=== PATIENT | male | born 1975 | race Caucasian/White ===

== ENCOUNTER 2019-01-14 10:34 | Emergency (ER) | payer SELFPAY ==
[~2019-01-14] VITALS: Ht 172.7 cm; Wt 96.6 kg
[2019-01-14 10:39] VITALS: BP 136/77; PULSE 110; RESP 18; Ht 172.7 cm; Wt 96.6 kg
[2019-01-14] MEDS ORDERED: CIPR500T4 PO (11:52)
[2019-01-14] MEDS ORDERED: IBUPROFEN 800 MG TAB PO ONE (12:00)
--- NOTE | 2019-01-14 13:07 | ERD ---
ER Documentation Chief Complaint Chief Complaint uanble to urinate since morning HPI 43-year-old male presenting with dysuria. Patient states he has urinary retention. Has no back pain. No fevers. Denies flank pain. Denies fever. Has some hematuria. Denies medical problems. NKDA. Surgical history denies. Social history denies ROS All systems reviewed and are negative except as per history of present illness. Medications Home Meds Active Scripts Ciprofloxacin Hcl* (Ciprofloxacin Hcl*) 500 Mg Tablet, 500 MG PO BID for 7 Days, TAB Prov:DOMINIQUE CAMPBELL PA-C 01/14/19 PMhx/Soc History of Surgery: No Anesthesia Reaction: No Hx Neurological Disorder: No Hx Respiratory Disorders: No Hx Cardiac Disorders: No Hx Psychiatric Problems: No Hx Miscellaneous Medical Probl: No Hx Alcohol Use: No Hx Substance Use: No Hx Tobacco Use: No Smoking Status: Never smoker FmHx Family History: No diabetes, No coronary disease, No other Physical Exam Vitals Vital Signs Date Temp Pulse Resp B/P (MAP) Pulse Ox O2 O2 Flow FiO2 Time Delivery Rate 01/14/19 98.3 110 18 136/77 98 10:39 (96) Physical Exam GENERAL: The patient is well-appearing, well-nourished, in no acute distress HEENT: Atraumatic. Conjunctivae are pink. Pupils equal, round, and reactive to light. There is no scleral icterus. Tympanic membranes clear bilaterally. Oropharynx clear. NECK: C-spine is soft and supple. There is no meningismus. There is no cervical lymphadenopathy. CHEST: Clear to auscultation bilaterally. There are no rales, wheezes or rhonchi. HEART: Regular rate and rhythm. No murmurs, clicks, rubs or gallops. ABDOMEN:Soft, nontender and nondistended. Good bowel sounds. No rebound or guarding. No gross peritonitis. No gross organomegaly or masses. BACK: No CVAT Results 24 hrs Laboratory Tests Test 01/14/19 10:46 Urine Color YELLOW Urine Clarity CLOUDY Urine pH 7 Urine Specific [place] 1.005 Urine Ketones NEGATIVE mg/dL Urine Nitrite NEGATIVE mg/dL Urine Bilirubin NEGATIVE mg/dL Urine Urobilinogen NEGATIVE mg/dL Urine Leukocyte Esterase 1+ Anderson/ul Urine Microscopic RBC > 182 /HPF Urine Microscopic WBC > 182 /HPF Urine Squamous Epithelial Cells FEW /HPF Urine Bacteria FEW /HPF Urine Hemoglobin NEGATIVE mg/dL Urine Glucose 1+ mg/dL Urine Total Protein 1+ mg/dl Current Medications Medications Dose Sig/Ghulam Start Time Status Last (Trade) Ordered Route PRN Stop Time Admin Dose Reason Admin Ibuprofen 800 mg ONCE ONCE 01/14/19 DC 01/14/19 (Motrin) PO 12:00 01/14/19 12:04 12:01 Procedures/MDM ER course: Neff catheter inserted. Urine positive for infection. Patient will be treated with antibiotics. MDM: 3-year-old male presenting with urinary infection. Patient will have Neff catheter placed for 2 days and recommended to return in 2 days for recheck. Patient is also recommended prompt follow-up with primary care. I have low suspicion for breast abnormalities patient does have findings consistent with urinary infection. Patient is treated with oral antibiotics. I have low suspicion for pyelonephritis. All questions answered at discharge Departure Diagnosis: Primary Impression: UTI (urinary tract infection) Additional Impression: Retention of urine Condition: Stable Patient Instructions: Understanding Urinary Tract Infections (UTIs), Urinary Retention, Male Referrals: [facility] YOU HAVE RECEIVED A MEDICAL SCREENING EXAM AND THE RESULTS INDICATE THAT YOU DO NOT HAVE A CONDITION THAT REQUIRES URGENT TREATMENT IN THE EMERGENCY DEPARTMENT. FURTHER EVALUATION AND TREATMENT OF YOUR CONDITION CAN WAIT UNTIL YOU ARE SEEN IN YOUR DOCTORS OFFICE WITHIN THE NEXT 1-2 DAYS. IT IS YOUR RESPONSIBILITY TO MAKE AN APPOINTMENT FOR FOLOW-UP CARE. IF YOU HAVE A PRIMARY DOCTOR --you should call your primary doctor and schedule an appointment IF YOU DO NOT HAVE A PRIMARY DOCTOR YOU CAN CALL OUR PHYSICIAN REFERRAL HOTLINE AT IF YOU CAN NOT AFFORD TO SEE A PHYSICIAN YOU CAN CHOSE FROM THE FOLLOWING [facility] [address] [facility] [address] [facility] [address] [facility] [address] [facility] [address] [facility]. [facility]. [address] Additional Instructions: FOLLOW UP WITH YOUR PRIMARY CARE PHYSICIAN TOMORROW.Return to this facility if you are not improving as expected. DOMINIQUE CAMPBELL PA-C Jan 14, 2019 13:07
== END 2019-01-14 12:15 | disposition home or self-care (01) ==
LOC: FTE 10:34
DX: N39.0 Urinary tract infection, site not specified (principal)
CPT/HCPCS: 81001; 87086

== ENCOUNTER 2019-01-16 12:40 | Emergency (ER) | payer SELFPAY ==
[~2019-01-16] VITALS: Ht 175.3 cm; Wt 97.8 kg
[~2019-01-16 12:40] MED LIST: CIPR500T4 PO
[2019-01-16 12:45] VITALS: Ht 175.3 cm; Wt 97.8 kg
--- NOTE | 2019-01-16 14:52 | ERD ---
ER Documentation Chief Complaint Chief Complaint for urinary catheter removal HPI 43-year-old male presenting for catheter removal. Patient had a urinary catheter placed 2 days ago due to urinary retention. He was diagnosed with urinary tract infection. Patient states that he has no back pain and no fevers. Denies other medical problems. NKDA's. Surgical history denies. Up-to-date on vaccinations ROS All systems reviewed and are negative except as per history of present illness. Medications Home Meds Active Scripts Ciprofloxacin Hcl* (Ciprofloxacin Hcl*) 500 Mg Tablet, 500 MG PO BID for 7 Days, TAB Prov:DOMINIQUE CAMPBELL PA-C 01/14/19 PMhx/Soc History of Surgery: No Anesthesia Reaction: No Hx Neurological Disorder: No Hx Respiratory Disorders: No Hx Cardiac Disorders: No Hx Psychiatric Problems: No Hx Miscellaneous Medical Probl: No Hx Alcohol Use: No Hx Substance Use: No Hx Tobacco Use: No FmHx Family History: No diabetes, No coronary disease, No other Physical Exam Vitals Vital Signs Date Temp Pulse Resp B/P (MAP) Pulse Ox O2 O2 Flow FiO2 Time Delivery Rate 01/16/19 98.4 14:37 01/16/19 99.1 92 19 126/78 98 12:45 (94) Physical Exam GENERAL: The patient is well-appearing, well-nourished, in no acute distress CHEST: Clear to auscultation bilaterally. There are no rales, wheezes or rhonchi. HEART: Regular rate and rhythm. No murmurs, clicks, rubs or gallops. ABDOMEN:Soft, nontender and nondistended. Good bowel sounds. No rebound or guarding. No gross peritonitis. No gross organomegaly or masses. BACK: No midline or flank tenderness. Results 24 hrs Laboratory Tests Test 01/16/19 14:02 Bedside Urine pH (LAB) 5.0 Bedside Urine Protein (LAB) 1+ Bedside Urine Glucose (UA) Negative Bedside Urine Ketones (LAB) Negative Bedside Urine Blood 3+ Bedside Urine Nitrite (LAB) Negative Bedside Urine Leukocyte Esterase (L 2+ Procedures/MDM ER course: Catheter removed and patient is able to urinate without complication. Denies any burning with urination. Urinary culture was reviewed and patient is on appropriate antibiotic treatment. MDM: 43-year-old male presenting with urinary tract infection. Patient catheter removed and is able to produce urine without complication or pain. I have low suspicion for pyelonephritis. Patient is being treated with appropriate antibiotic treatment is told to continue antibiotics as previously prescribed. I have low suspicion for pyelonephritis. I have low suspicion for acute abdominal emergency. All questions answered at discharge Departure Diagnosis: Primary Impression: UTI (urinary tract infection) Additional Impression: Encounter for urinary catheter Condition: Stable Patient Instructions: Neff Catheter Removal, Understanding Urinary Tract Infections (UTIs) Referrals: [facility] YOU HAVE RECEIVED A MEDICAL SCREENING EXAM AND THE RESULTS INDICATE THAT YOU DO NOT HAVE A CONDITION THAT REQUIRES URGENT TREATMENT IN THE EMERGENCY DEPARTMENT. FURTHER EVALUATION AND TREATMENT OF YOUR CONDITION CAN WAIT UNTIL YOU ARE SEEN IN YOUR DOCTORS OFFICE WITHIN THE NEXT 1-2 DAYS. IT IS YOUR RESPONSIBILITY TO MAKE AN APPOINTMENT FOR FOLOW-UP CARE. IF YOU HAVE A PRIMARY DOCTOR --you should call your primary doctor and schedule an appointment IF YOU DO NOT HAVE A PRIMARY DOCTOR YOU CAN CALL OUR PHYSICIAN REFERRAL HOTLINE AT IF YOU CAN NOT AFFORD TO SEE A PHYSICIAN YOU CAN CHOSE FROM THE FOLLOWING [facility] [address] [facility]. [facility] [place] [address] [facility] [address] [facility] [facility] [address] [facility] [address] [facility]. [facility]. [address] Additional Instructions: FOLLOW UP WITH YOUR PRIMARY CARE PHYSICIAN TOMORROW.Return to this facility if you are not improving as expected. DOMINIQUE CAMPBELL PA-C Jan 16, 2019 14:52
== END 2019-01-16 14:38 | disposition home or self-care (01) ==
LOC: FTE 12:40
DX: N39.0 Urinary tract infection, site not specified (principal)
CPT/HCPCS: 81003; 99283